=== PATIENT | male | born 1940 | race Caucasian/White ===

== ENCOUNTER → 2018-01-20 | Day surgery (SDC) | payer MEDICARE ==
[2018-01-18 11:10] LABS: BASOPHILS % 0.7 % (0.0-1.0); EOSINOPHILS # (AUTO) 0.2 (0.0-0.4); EOSINOPHILS % 3.1 % (0.0-6.0); HEMATOCRIT 32.8 % (38.2-49.6); HEMOGLOBIN 10.8 g/dL (14.0-18.0); LYMPHOCYTES % 17.2 % (18.0-39.1); MEAN CORPUSCULAR HEMOGLOBIN 29.8 pg (28-32); MEAN CORPUSCULAR HGB CONC 32.9 g/dL (31-35); MEAN CORPUSCULAR VOLUME 90.4 fL (81-99); MONOCYTES # (AUTO) 0.7 (0.2-0.8); MONOCYTES % 11.1 % (4.4-11.3); NEUTROPHILS # (AUTO) 3.9 (2.1-6.9); NEUTROPHILS % 66.5 % (38.7-80.0); PLATELET COUNT 126 x10e3/uL (140-360); RED BLOOD COUNT 3.63 x10e6/uL (4.3-5.7); RED CELL DISTRIBUTION WIDTH 13.4 % (11.7-14.4)
[2018-01-18 11:28] LABS: INR 0.89; PROTHROMBIN TIME 12.9 seconds (11.9-14.5)
[2018-01-18 11:29] LABS: PARTIAL THROMBOPLASTIN TIME 29.9 seconds (23.8-35.5)
[2018-01-18 11:35] LABS: ALBUMIN 3.5 g/dL (3.5-5.0); ALBUMIN/GLOBULIN RATIO 1.2 (0.8-2.0); ANION GAP 16.4 mmol/L (8-16); CALCIUM 8.9 mg/dL (8.4-10.2); CREATININE, SERUM 4.23 mg/dL (0.72-1.25); POTASSIUM 4.4 mmol/L (3.5-5.1)
--- NOTE | 2018-01-18 11:50 | Diagnostic Imaging Report ---
EXAMINATION: PA and lateral views of the chest. COMPARISON: Portable chest 08/21/2016 CLINICAL HISTORY: Preop heart catheter, no chest complaints DISCUSSION: Lines/tubes: None. Lungs: The lungs are well inflated and clear. There is no evidence of pneumonia or pulmonary edema. Pleura: There is no pleural effusion or pneumothorax. Heart and mediastinum: Cardiomediastinal silhouette is unremarkable. Pulmonary vasculature is normal. Bones and soft tissues: No acute bony abnormalities. Degenerative changes in the thoracic spine IMPRESSION: No acute cardiopulmonary abnormalities. Signed by: Dr. Garcia Alberto M.D. on 01/18/2018 11:46 AM
[~2018-01-20] VITALS: Ht 182.9 cm; Wt 95.7 kg
[2018-01-20] VITALS (15 sets, daily range): BP systolic 143–185; BP diastolic 69–89
[~2018-01-20] MED LIST: ACETAMINOPHEN325 M1 PO; AMLODIPINE BESYL5 MG PO; ASPIR 8181 MG PO; ATORVASTATIN CA10 MG PO; AVODART0.5 MG PO; CALCITRIOL0.25 MCG PO; CALCIUM ACETAT667 MG PO; FENTANYL CITRATE/PF 100MCG/2 ML INJ ONE; FISH OIL 1,2001 EACH PO; FLOMAX0.4 MG PO; FLUOROURACIL40 GM TOP; FUROSEMIDE40 MG PO; HEPARIN SOD/SOD CHLORIDE 2,000 ML ONE; IOPAMIDOL 370 MG/ML 200 ML INFUS..BTL INJ ONE; LIDOCAINE HCL 2% LOCAL 20 ML VIAL ONE; MIDAZOLAM HCL 2 MG/2 ML VIAL ONE; MULTIVITAMINS1 EAC7 PO; SODIUM CHLORIDE 0.9% 1000ML 1,000 ML ONE; TEMAZEPAM7.5 MG PO; TYLENOL WITH C1 EACH PO; ULORIC40 MG PO; ULTRAM 50MG50 MG PO; [UNRECOGNIZED DRUG - OTHER] PO
--- OUTSIDE RECORDS SUMMARY | 2018-01-20 06:28 | XMS REPORT ---
Author [facility] Address Unknown Phone Unavailable Care Team Providers Care Manager Diesel Name Role Phone KT LANDIN Unavailable Unavailable Problems This patient has no known problems. Allergies, Adverse Reactions, Alerts This patient has no known allergies or adverse reactions. Medications This patient has no known medications. Results Test Description Test Time Test Comments Text Results Atomic Results Result Comments CHEST 2 VIEWS 2018-01-18 11:46:00 [facility] [address] [address] Patient Name: EMMA STROUD MR #: [id number] : 1940 Age/Sex: 77/M Req #: [id number] [facility] Physician: Ordered by: KT LANDIN MD Report #: [id number] Location: METAL ROOM DENTAL TECHNICIAN Room/Bed: Procedure: [id number] DX/CHEST 2 VIEWS Exam Date: 01/18/18 Exam Time: 1125 REPORT STATUS: Signed EXAMINATION: PA and lateral views of the chest. CO MPARISON: Portable chest 08/21/2016 CLINICAL HISTORY: Preop heart catheter, no chest complaints DISCUSSION: Lines/tubes: None. Lungs: The lungs are well inflated and clear. There is no evidence of pneumonia or pulmonary edema. Pleura: There is no pleural effusion or pneumothorax. Heart and mediastinum: Cardiomediastinal silhouette is unremarkable. Pulmonary vasculature is normal. Bones and soft tissues: No acute bony abnormalities. Degenerative changes in the thoracic spine IMPRESSION: No acute cardiopulmonary abnormalities. Signed by: Dr. Lisha Obrien M.D. on 01/18/2018 11:46 AM Dictated By: LISHA OBRIEN MD [id number] Transcribed By: MARIA LUZ on 01/18/18 1146 COPY TO: KT LANDIN MD
--- NOTE | 2018-01-20 09:49 | Operative Report ---
DATE OF PROCEDURE: January 20, 2018 PROCEDURES PERFORMED 1. Left heart catheterization. 2. Selective coronary angiogram. 3. Left ventriculogram. REFERRING PHYSICIAN: Dr. Bautista INDICATIONS: Chest pain and abnormal stress test. ANESTHESIA: Two percent lidocaine for local anesthesia, fentanyl and Versed for conscious sedation. BLOOD LOSS: 2 mL. DESCRIPTION OF PROCEDURE: After informed consent, the patient was brought to the cardiac catheterization laboratory and placed on the table. Both groins were painted and draped in a sterile fashion. Lidocaine injected in the right groin for local anesthesia. The right femoral artery was accessed by Seldinger technique, and a 5-Zimbabwean sheath was placed in right femoral artery. Left main artery was cannulated using a JL4 5-Zimbabwean catheter. Coronary angiogram was performed, and images obtained in multiple views. Right coronary artery was cannulated using a 3DRC 5-[place]an catheter. Coronary angiogram was performed and images obtained in multiple views. LV-gram was performed using a pigtail catheter. Patient tolerated the procedure without any complications. REPORT LEFT MAIN: Is of normal caliber with 30% to 40% distal lesion. LEFT ANTERIOR DESCENDING: Narrow caliber. Has diffuse disease with a 90% distal lesion. The diagonal branches are small to moderate size vessels and are diffusely disease. LEFT CIRCUMFLEX: Normal caliber. Is diffusely diseased with calcific mid-lesion. Beyond the 2nd obtuse marginal branch, the left circumflex is a narrow caliber vessel and diffusely diseased. The 1st obtuse marginal branch has about a 60% mid-lesion. The 2nd obtuse marginal branch bifurcates and has sequential lesions about 80% proximally and 80% mid. RIGHT CORONARY ARTERY: Is a large dominant vessel and diffusely disease with an 80% lesion at its origin, and a 30% mid-lesion, 80% distal lesion at the crux. The posterior descending artery is diffusely diseased with 80% long mid-lesion. LV-GRAM: Normal LV function. Overall ejection fraction 55%. HEMODYNAMICS: Aortic pressure is 179/57. LV pressure 167/8. LVEDP is 18. PLAN: Coronary artery bypass surgery. Job#: [id number]
== END | disposition home or self-care (01) ==
LOC: CATH LAB 06:26
DX: I25.10 Atherosclerotic heart disease of native coronary artery without angina pectoris (principal); R94.39 Abnormal result of other cardiovascular function study; E11.22 Type 2 diabetes mellitus with diabetic chronic kidney disease; I12.0 Hypertensive chronic kidney disease with stage 5 chronic kidney disease or end stage renal disease; E11.40 Type 2 diabetes mellitus with diabetic neuropathy, unspecified; N18.6 End stage renal disease; R01.1 Cardiac murmur, unspecified; E78.5 Hyperlipidemia, unspecified; M10.9 Gout, unspecified; N40.0 Benign prostatic hyperplasia without lower urinary tract symptoms; E66.3 Overweight; Z99.2 Dependence on renal dialysis; Z88.0 Allergy status to penicillin; Z01.810 Encounter for preprocedural cardiovascular examination; Z01.812 Encounter for preprocedural laboratory examination; Z01.818 Encounter for other preprocedural examination; Z79.82 Long term (current) use of aspirin; Z68.32 Body mass index [BMI] 32.0-32.9, adult; Z82.49 Family history of ischemic heart disease and other diseases of the circulatory system
CPT/HCPCS: 36415; 71046; 80053; 85025; 85610; 85730; 93005; 93458; J2001; J2250; J7030; Q9967

== ENCOUNTER → 2022-05-05 | Outpatient (RCR) | payer MEDICARE ==
[~2022-05-05] MED LIST changes: -FENTANYL CITRATE/PF 100MCG/2 ML INJ ONE; -HEPARIN SOD/SOD CHLORIDE 2,000 ML ONE; -IOPAMIDOL 370 MG/ML 200 ML INFUS..BTL INJ ONE; -LIDOCAINE HCL 2% LOCAL 20 ML VIAL ONE; -MIDAZOLAM HCL 2 MG/2 ML VIAL ONE; +MINERAL OIL/PETROLAT/GLYCERI 6OZ BTL ONE; -SODIUM CHLORIDE 0.9% 1000ML 1,000 ML ONE
== END ==
LOC: WCC 04-24 08:53
PROVIDERS: ATTEND Internal Medicine Infectious Disease
DX: L89.159 Pressure ulcer of sacral region, unspecified stage (principal); I87.2 Venous insufficiency (chronic) (peripheral); I87.311 Chronic venous hypertension (idiopathic) with ulcer of right lower extremity; I87.331 Chronic venous hypertension (idiopathic) with ulcer and inflammation of right lower extremity; I87.332 Chronic venous hypertension (idiopathic) with ulcer and inflammation of left lower extremity; L97.811 Non-pressure chronic ulcer of other part of right lower leg limited to breakdown of skin; L97.821 Non-pressure chronic ulcer of other part of left lower leg limited to breakdown of skin; L03.115 Cellulitis of right lower limb; R60.0 Localized edema; N18.6 End stage renal disease; I10 Essential (primary) hypertension; E78.49 Other hyperlipidemia; N42.89 Other specified disorders of prostate; R26.81 Unsteadiness on feet

== ENCOUNTER → 2022-05-12 | Outpatient (CLI) | payer MEDICARE ==
[~2022-05-12] MED LIST changes: -MINERAL OIL/PETROLAT/GLYCERI 6OZ BTL ONE
== END ==
LOC: CARD 08:23
PROVIDERS: ATTEND Internal Medicine Infectious Disease
DX: I87.2 Venous insufficiency (chronic) (peripheral) (principal)
CPT/HCPCS: 93922; 93925; 93970

== ENCOUNTER 2022-07-03 09:52 | Outpatient (RCR) | payer MEDICARE ==
[~2022-07-03 09:52] MED LIST changes: +LIDOCAINE VISC 2% SOLN 15 ML UDC ONE; +MINERAL OIL/PETROLAT/GLYCERI 6OZ BTL ONE; +MUPIROCIN 2% OINT 22 GM TUBE ONE; +TRIAMCINOLONE ACET 0.1% CREAM 15 GM TUBE ONE
[2022-07-03] MEDS ORDERED: MINERAL OIL/PETROLAT/GLYCERI 6OZ BTL ONE (12:44)
== END 2022-07-05 ==
LOC: WCC 09:52
PROVIDERS: ATTEND Internal Medicine Infectious Disease
DX: R60.0 Localized edema (principal)

== ENCOUNTER 2022-07-24 10:12 | Outpatient (RCR) | payer MEDICARE ==
[~2022-07-24 10:12] MED LIST changes: -LIDOCAINE VISC 2% SOLN 15 ML UDC ONE; -MUPIROCIN 2% OINT 22 GM TUBE ONE
[2022-07-24] MEDS ORDERED: MINERAL OIL/PETROLAT/GLYCERI 6OZ BTL ONE (13:24)
[2022-07-24] MEDS ORDERED: LIDOCAINE VISC 2% SOLN 15 ML UDC ONE (13:24)
== END 2022-08-05 ==
LOC: WCC 10:12
PROVIDERS: ATTEND Internal Medicine Infectious Disease
DX: I87.312 Chronic venous hypertension (idiopathic) with ulcer of left lower extremity (principal); I87.311 Chronic venous hypertension (idiopathic) with ulcer of right lower extremity; L97.828 Non-pressure chronic ulcer of other part of left lower leg with other specified severity; L97.811 Non-pressure chronic ulcer of other part of right lower leg limited to breakdown of skin; R60.0 Localized edema; I89.0 Lymphedema, not elsewhere classified